=== PATIENT | female | born 1985 | race Caucasian/White ===

== ENCOUNTER 2017-05-03 10:32 | Outpatient (CLI) | payer OTHER ==
[2017-05-03] MEDS ORDERED: Iopamidol 370 76% 100 ML VIAL ONE (12:32)
== END 2017-05-03 10:33 | disposition home or self-care (01) ==
LOC: BICCT 10:32
PROVIDERS: ATTEND Family Medicine
DX: R51 Headache (principal)
CPT/HCPCS: 70470

== ENCOUNTER 2018-05-15 09:16 | Inpatient (IN) | payer BC ==
[2018-05-18] MEDS ORDERED: Ondansetron PF 4 MG/2 ML Vial IVP PRN ×2 (01:54→11:14)
[2018-05-18] MEDS ORDERED: NS w/ Oxytocin 10 units 500 ML IV SCH ×2 (01:54)
[2018-05-18] MEDS ORDERED: Promethazine HCl 25 MG/ML VIAL IM PRN (01:54)
[2018-05-18] MEDS ORDERED: Acetaminophen/Codeine 30-300mg Tablet PO PRN (01:54)
[2018-05-18] MEDS ORDERED: HYDROcodone/Acetaminophen 5/325 mg Tablet PO PRN ×2 (01:54→11:14)
[2018-05-18] MEDS ORDERED: Ibuprofen 800 MG TAB PO PRN (01:54)
[2018-05-18] MEDS ORDERED: Lidocaine 1% (PF) 30 ML VIAL SC PRN (01:54)
[2018-05-18] MEDS ORDERED: Butorphanol Tartrate 1 MG/ML VIAL SLOW IVP PRN (01:54)
[2018-05-18] MEDS ORDERED: NS / Oxytocin 40 units/1000ml 1,000 ML IV PRN (01:54)
[2018-05-18] MEDS ORDERED: Misoprostol 200 MCG TAB PR PRN (01:54)
[2018-05-18] MEDS ORDERED: Acetaminophen 500 MG TAB PO PRN (01:54)
[2018-05-18 02:15] LABS: Hemoglobin 11.3 g/dL (12.0-16.0); Mean Corpuscular HGB CONC 33.8 g/dL (32.0-36.0); Mean Corpuscular Hemoglobin 31.5 pg (27.0-31.0); Mean Corpuscular Volume 93.1 fL (78.0-98.0); Mean Platelet Volume 8.2 fL (7.4-10.4); Platelet Count 175 thou/uL (130-400); Red Blood Cell (RBC) Count 3.59 mill/uL (4.20-5.40); White Blood Cell (WBC) Count 9.1 thou/uL (4.8-10.8)
[2018-05-18 02:18] VITALS: BMI 28.8
[2018-05-18 02:50] LABS: HBSAg Index 0.21 S/CO (0-0.99); Hep B Surf Ag Non-Reactive S/CO (NonReactive)
[2018-05-18 03:52] LABS: Syphilis Antibody Nonreactive (Nonreactive); Syphilis Antibody Index 0.05 S/CO (<1.00 Non-Reactive)
[2018-05-18] MEDS: Lactated Ringer's 1,000 ML IV SCH ×2 (07:03→13:55)
[2018-05-18] MEDS ORDERED: Lidocaine 1% (PF) 30 ML VIAL ONE (09:52)
[2018-05-18] MEDS ORDERED: NS / Oxytocin 40 units/1000ml 1,000 ML ONE (09:52)
[2018-05-18] MEDS ORDERED: Misoprostol 200 MCG TAB ONE (10:14)
[2018-05-18] MEDS ORDERED: Milk Of Magnesia 30 ML UDCUP PO PRN (11:14)
[2018-05-18] MEDS ORDERED: diphenhydrAMINE 25 MG CAP PO PRN (11:14)
[2018-05-18] MEDS ORDERED: NS / Oxytocin 40 units/1000ml 1,000 ML IV SCH (11:14)
[2018-05-18] MEDS ORDERED: Benzocaine/Menthol 20-0.5% 60 ML CAN TOP PRN (11:14)
[2018-05-18] MEDS ORDERED: Bisacodyl 10 MG SUPP PR PRN (11:14)
[2018-05-18] MEDS ORDERED: Lanolin Ointment 7 GM TUBE TOP PRN (11:14)
[2018-05-18] MEDS ORDERED: Ferrous Sulfate 325 MG TAB PO SCH (12:00)
[2018-05-18] MEDS ORDERED: Docusate Calcium (SURFAK) 240 MG CAP PO SCH (12:00)
[2018-05-18] MEDS ORDERED: Prenatal Vitamin 1 TAB PO SCH (12:00)
[2018-05-18] MEDS: Ibuprofen 800 MG TAB PO SCH ×2 (14:17→21:43)
[2018-05-18] MEDS: Ferrous Sulfate 325 MG TAB PO SCH (17:03)
[2018-05-18] MEDS: Acetaminophen/Codeine 30-300mg Tablet PO PRN (18:03)
[2018-05-18] MEDS: Docusate Calcium (SURFAK) 240 MG CAP PO SCH (21:42)
[2018-05-19] MEDS: Ibuprofen 800 MG TAB PO SCH ×2 (05:27→13:52)
[2018-05-19] MEDS: Acetaminophen/Codeine 30-300mg Tablet PO PRN (05:27)
[2018-05-19] MEDS: Ferrous Sulfate 325 MG TAB PO SCH (07:47)
[2018-05-19 08:06] LABS: Hemoglobin 10.5 g/dL (12.0-16.0); Mean Corpuscular HGB CONC 34.3 g/dL (32.0-36.0); Mean Corpuscular Hemoglobin 32.4 pg (27.0-31.0); Mean Corpuscular Volume 94.3 fL (78.0-98.0); Mean Platelet Volume 8.4 fL (7.4-10.4); Platelet Count 164 thou/uL (130-400); RBC Distribution Width 12.1 % (11.5-14.5); Red Blood Cell (RBC) Count 3.26 mill/uL (4.20-5.40); White Blood Cell (WBC) Count 7.9 thou/uL (4.8-10.8)
[2018-05-19] MEDS ORDERED: Prenatal Vitamin 1 TAB PO SCH (09:00)
[2018-05-19] MEDS: Docusate Calcium (SURFAK) 240 MG CAP PO SCH (09:07)
[2018-05-19 11:42] VITALS: BP 104/66; TEMP 98.3
== END 2018-05-19 15:05 | disposition home or self-care (01) | DRG 807 ==
LOC: EDSTATUS 14:03 → L&D 05-17 22:59 → 3SW 05-18 13:52
PROVIDERS: ADMIT Family Medicine; ATTEND Family Medicine
PROC: 10E0XZZ Delivery of Products of Conception, External Approach (ICD-10-PCS; principal; 2018-05-18)
PROC: 10907ZC Drainage of Amniotic Fluid, Therapeutic from Products of Conception, Via Natural or Artificial Opening (ICD-10-PCS; 2018-05-18)
DX: O48.0 Post-term pregnancy (principal); Z37.0 Single live birth; Z3A.40 40 weeks gestation of pregnancy; Z88.8 Allergy status to other drugs, medicaments and biological substances; O69.81X0 Labor and delivery complicated by cord around neck, without compression, not applicable or unspecified
CPT/HCPCS: 36415; 85027; 86780; 86850; 86900; 86901; 87340; 99285; J2001

== ENCOUNTER 2019-04-18 11:07 | Outpatient (CLI) | payer BC ==
--- NOTE | 2019-04-18 11:30 | RAD ---
XR Chest Pa Lat STANDARD HISTORY: Chest pain, dyspnea COMPARISON: None FINDINGS: The heart size is normal. The lungs are well expanded without focal areas of consolidation, pneumothorax or pleural effusions. IMPRESSION: No radiographic evidence of acute cardiopulmonary process.
== END 2019-04-18 11:08 | disposition home or self-care (01) ==
LOC: BICRAD 11:07
PROVIDERS: ATTEND Family Medicine
DX: R07.89 Other chest pain (principal)
CPT/HCPCS: 71046

== ENCOUNTER 2019-04-19 19:35 | Emergency (ER) | payer BC ==
[2019-04-19 19:58] LABS: #Basophils 0.1 thou/uL (0.0-0.2); #Eosinphils 0.1 thou/uL (0.0-0.7); #Lymphocytes 2.9 thou/uL (1.20-3.40); #Monocytes 0.4 thou/uL (0.11-0.59); #Neutrophils 3.9 thou/uL (1.40-6.50); %Basophils 1.5 % (0.0-1.0); %Eosinophils 1.7 % (0.0-10.0); %Lymphocytes 39.2 % (21.0-51.0); %Monocytes 4.8 % (0.0-10.0); %Neutrophils 52.9 % (42.0-75.0); Hemoglobin 12.3 g/dL (12.0-16.0); Mean Corpuscular Hemoglobin 31.2 pg (27.0-31.0); Mean Corpuscular Volume 91.9 fL (78.0-98.0); Mean Platelet Volume 8.2 fL (7.4-10.4); Platelet Count 201 thou/uL (130-400); RBC Distribution Width 10.7 % (11.5-14.5); Red Blood Cell (RBC) Count 3.93 mill/uL (4.20-5.40); White Blood Cell (WBC) Count 7.4 thou/uL (4.8-10.8)
[2019-04-19 20:21] LABS: ALT (SGPT) 11 U/L (8-55); AST (SGOT) 14 U/L (5-34); Albumin 4.3 g/dL (3.5-5.0); Alkaline Phosphatase 53 U/L (40-110); Anion Gap 10 mmol/L (10-20); BUN (Urea Nitrogen) 14 mg/dL (7.0-18.7); Bilirubin, Total 0.4 mg/dL (0.2-1.2); CK (CPK) 53 U/L (29-168); Calc. Creatinine Clearance 0 mL/min (70-130); Calcium 9.4 mg/dL (7.8-10.44); Carbon Dioxide 25 mmol/L (22-29); Chloride 106 mmol/L (98-107); Estimated GFR-MDRD 85; Globulin 3.3 g/dL (2.4-3.5); Glucose 102 mg/dL (70-105); Potassium 3.3 mmol/L (3.5-5.1); Protein, Total 7.6 g/dL (6.0-8.3); Sodium 138 mmol/L (136-145)
== END 2019-04-19 21:08 | disposition home or self-care (01) ==
LOC: ERS 19:35
DX: R07.89 Other chest pain (principal)
CPT/HCPCS: 36415; 80053; 82550; 84484; 85025; 93005

== ENCOUNTER 2019-12-18 11:01 | Outpatient (CLI) | payer BC, OTHER ==
[2019-12-19 12:35] LABS: SARS-CoV-2 MS2 Positive; SARS-CoV-2 N Gene Negative; SARS-CoV-2 S Gene Negative; SARS-CoV-2 by NAA Not Detected (NotDetected); SARS-CoV-2 orf1ab Negative
== END 2019-12-18 11:02 | disposition home or self-care (01) ==
LOC: LABSCS 11:01
PROVIDERS: ATTEND Student in an Organized Health Care Education/Training Program
DX: Z20.828 Contact with and (suspected) exposure to other viral communicable diseases (principal)
CPT/HCPCS: 87635; U0003

== ENCOUNTER → 2019-12-21 13:30 | Inpatient (IN) | payer BC, OTHER ==
[2019-12-19 11:02] LABS: Hemoglobin 11.6 g/dL (12.0-16.0); Mean Corpuscular HGB CONC 34.1 g/dL (32.0-36.0); Mean Corpuscular Hemoglobin 32.1 pg (27.0-31.0); Mean Corpuscular Volume 94.1 fL (78.0-98.0); Mean Platelet Volume 8.9 fL (7.4-10.4); Platelet Count 189 thou/uL (130-400); RBC Distribution Width 12.3 % (11.5-14.5); Red Blood Cell (RBC) Count 3.63 mill/uL (4.20-5.40); White Blood Cell (WBC) Count 7.7 thou/uL (4.8-10.8)
[2019-12-19 11:30] VITALS: BMI 29.0
[2019-12-19 11:52] LABS: Syphilis Antibody Nonreactive (Nonreactive); Syphilis Antibody Index 0.04 S/CO (<1.00 Non-Reactive)
[2019-12-19 11:53] LABS: HBSAg Index 0.16 S/CO (0-0.99); Hep B Surf Ag Non-Reactive S/CO (NonReactive)
--- NOTE | 2019-12-19 15:43 | PDOC.LDHP ---
Labor and Delivery H&P Chief complaint: other (vag bleeding) HPI: 34yo at 39w here with c/o vaginal bleeding, had large clot this morning, no continued bleeding now, filled a few panty liners, denies ctx or LOF. Hx low lying placenta. IOL sched for today, elective Current gestational age (weeks): 39 Due date: 12/26/19 Dating criteria: last menstrual period Grav: 4 Para: 3 Current complications: none Abnormal US findings: Yes (low lying placenta, resolved) Past Medical History: denies Current medications: pre- vitamins Previous surgical history: none Allergies/Adverse Reactions: Allergies Allergy/AdvReac Type Severity Reaction Status Date / Time chlorhexidine Allergy Verified 05/18/18 02:20 peanut Allergy Verified 05/18/18 02:20 Social history: none - Physical Exam Vital signs reviewed and normal: yes General: NAD Heart: RRR Lungs: CTAB Abdomen: gravid Extremeties: no edema FHT: category 1 [place] contractions every: 8min - Vaginal Exam cm dilated: 6 Effacement: 75% Station: -2 (arom clear) - OB Labs Blood type: O RH: positive Antibody Screen: negative HIV: negative RPR: negative HEPSAg: negative 1 hour GCT: negative GBS: negative Urine drug screen: negative Rubella: immune - Assessment L&D Assessment: term patient in labor - Plan Plan: admit to L&D, labor augmentation if indicated, informed consent obtained, anesthesia consult for pain management
--- NOTE | 2019-12-19 15:45 | PDOC.OPDEL ---
OB Operative/Delivery Note Delivery Dr/Surgeon: Jaxson Assist: n/a Pre-Delivery Diagnosis: active labor Procedure/Post Delivery Dx: spontaneous vaginal delivery Weeks gestation: 39 Anesthesia: none - Findings A Sex: male - 1 min: 8 - 5 min: 9 - Additional Findings/Plan Placenta delivered: spontaneous Repaired Obstetrical Laceration: none Estimated blood loss: 350cc Post delivery plan: routine recovery
[2019-12-19] MEDS: HYDROcodone/Acetaminophen 5/325 mg Tablet PO PRN (20:14)
[2019-12-19] MEDS: Ibuprofen 800 MG TAB PO SCH (22:23)
[2019-12-19] MEDS: Docusate Calcium (SURFAK) 240 MG CAP PO SCH (22:24)
[2019-12-20] MEDS: Ibuprofen 800 MG TAB PO SCH ×3 (06:01→21:37)
[2019-12-20] MEDS: HYDROcodone/Acetaminophen 5/325 mg Tablet PO PRN ×2 (06:05→15:09)
--- NOTE | 2019-12-20 08:09 | PDOC.PP ---
Post Progress Note Post Day #: 1 PO intake tolerated: yes Flatus: yes Ambulation: yes Vital Signs (12 hours) Temp Pulse Resp BP Pulse Ox 12/20/19 07:37 98.3 F 71 20 110/66 99 12/20/19 05:58 98.4 F 68 16 108/58 L 12/20/19 00:30 98.4 F 62 16 105/55 L 12/19/19 22:20 98.1 F Weight Weight 191 lb - Physical Examination General: NAD Respiratory: non-labored breathing Abdominal: appropriately TTP Fundus firm & at: umb Neurological: no gross focal deficits Psychiatric: normal affect Result Diagrams: 12/19/19 10:49 Additional Labs: Post Labs Hep Bs Antigen Non-Reactive S/CO (NonReactive) 12/19/19 10:49 Blood Type O POSITIVE 12/19/19 10:49 - Assessment/Plan PPD1 s/p TSVD VSSAF No issues, bleeding appropriate, mild PPH s/p cytotec, FF Rh pos RImm DC home FU 6w
[2019-12-20] MEDS: Ferrous Sulfate 325 MG TAB PO SCH ×2 (08:43→15:08)
[2019-12-20] MEDS: Prenatal Vitamin 1 TAB PO SCH (09:19)
[2019-12-20] MEDS: Docusate Calcium (SURFAK) 240 MG CAP PO SCH ×2 (09:19→21:37)
[2019-12-20 20:30] VITALS: TEMP 98.2
[2019-12-21] MEDS: Ibuprofen 800 MG TAB PO SCH (07:23)
[2019-12-21 07:43] VITALS: BP 108/64
--- NOTE | 2019-12-21 08:03 | PDOC.PP ---
Post Progress Note Post Day #: 2 Subjective: doing well, ready for DC home PO intake tolerated: yes Flatus: yes Ambulation: yes Vital Signs (12 hours) Temp Pulse Resp BP Pulse Ox 12/21/19 07:42 98.2 F 65 20 108/64 98 Weight Weight 191 lb - Physical Examination General: NAD Respiratory: non-labored breathing Psychiatric: A&Ox3, normal affect Result Diagrams: 12/19/19 10:49 Additional Labs: Post Labs Hep Bs Antigen Non-Reactive S/CO (NonReactive) 12/19/19 10:49 Blood Type O POSITIVE 12/19/19 10:49 - Assessment/Plan PPD 2 doing well, home today.
[2019-12-21] MEDS: Ferrous Sulfate 325 MG TAB PO SCH (09:03)
[2019-12-21] MEDS: Docusate Calcium (SURFAK) 240 MG CAP PO SCH (09:03)
[2019-12-21] MEDS: Prenatal Vitamin 1 TAB PO SCH (09:03)
[~2019-12-21 13:30] MED LIST: Acetaminophen 500 MG TAB PO PRN; Adacel (T-DAP) 0.5 ML SYRINGE IM ONE; Benzocaine-Menthol 82.5 ML CAN TOP PRN; Bisacodyl 10 MG SUPP PR PRN; Butorphanol Tartrate 1 MG/ML VIAL SLOW IVP PRN; Carboprost 250 MCG/ML AMP IM PRN; Diphenoxylate HCl/Atropine Tablet PO PRN; Fentanyl 4 mcg/Bup 0.1% Cadd 0 ML ONE; Ferrous Sulfate 325 MG TAB PO SCH; HYDROcodone/Acetaminophen 5/325 mg Tablet PO PRN; Ibuprofen 800 MG TAB PO PRN; Lactated Ringer's 1,000 ML IV SCH; Lanolin Ointment 7 GM TUBE TOP PRN; Lidocaine 1% (PF) 30 ML VIAL SC PRN; Methylergonovine 0.2 MG/ML VIAL IM PRN; Milk Of Magnesia 30 ML UDCUP PO PRN; Misoprostol 200 MCG TAB PR PRN; NS / Oxytocin 40 units/1000ml 1,000 ML IV PRN; NS / Oxytocin 40 units/1000ml 1,000 ML IV SCH; Ondansetron PF 4 MG/2 ML Vial IVP PRN; Preparation H Ointment 28 GM TUBE PR PRN; Promethazine HCl 25 MG/ML VIAL IM PRN; diphenhydrAMINE 25 MG CAP PO PRN; hydrALAZINE 20 MG/ML VIAL SLOW IVP PRN
== END | disposition home or self-care (01) | DRG 807 ==
LOC: L&D/OP 05-17 22:58 → L&D 12-19 08:15 → 3SE 12-19 18:41 → EDSTATUS 01-02 14:47
PROVIDERS: ADMIT Student in an Organized Health Care Education/Training Program; ATTEND Student in an Organized Health Care Education/Training Program
PROC: 10E0XZZ Delivery of Products of Conception, External Approach (ICD-10-PCS; principal; 2019-12-19)
PROC: 10907ZC Drainage of Amniotic Fluid, Therapeutic from Products of Conception, Via Natural or Artificial Opening (ICD-10-PCS; 2019-12-19)
DX: O72.1 Other immediate postpartum hemorrhage (principal); Z37.0 Single live birth; Z3A.39 39 weeks gestation of pregnancy
CPT/HCPCS: 36415; 85027; 86780; 86850; 86900; 86901; 87340; 87635; 99285; U0003

== ENCOUNTER 2020-02-06 06:26 | Emergency (ER) | payer BC ==
[2020-02-06 07:14] LABS: Bilirubin Negative (Negative); Blood, Urine Large (Negative); Glucose, Urine (Dipstick) Negative (Negative); Ketone, Urine Trace mg/dL (Negative); Leukocyte Negative (Negative); Nitrite Negative (Negative); Protein, Urine (Dipstick) 100 mg/dL (Neg-Trace); Urobilinogen 0.2 mg/dL (Less than 2); pH, Urine 5.5 (5.0-9.0)
[2020-02-06] MEDS ORDERED: Ibuprofen 800 MG TAB ONE (07:21)
[2020-02-06] MEDS ORDERED: Ondansetron ODT 8 MG TAB ONE (07:21)
[2020-02-06 07:31] LABS: Clarity Cloudy (Clear); Specific Gravity, Urine 1.033 (1.002-1.036)
[2020-02-06 07:33] LABS: RBC/HPF Greater than 50 HPF (0-3)
[2020-02-06 07:34] LABS: Bacteria/HPF 2+ HPF (None Seen); Squamous Epithelial 0-3 HPF (0-3)
--- NOTE | 2020-02-06 07:37 | CT ---
Abdomen and pelvic CT scan without IV contrast: HISTORY: Right-sided flank pain FINDINGS: The lung bases are clear. The liver, gallbladder, pancreas, spleen, adrenal glands are unremarkable. Bilateral nonobstructing renal calculi. Moderate hydronephrosis of the right ureter with dilatation of the right upper collecting system and right ureter seen down into the level of the pelvis where th ere is an approximately 0.5 cm diameter calculus probably representing an obstructing distal right ureteral calculus. Normal-appearing appendix. No evidence for large or small bowel obstruction. No ab scess or abnormal fluid collection within the abdomen or pelvis. IMPRESSION: Evidence for a distal right ureteral obstructing calculus with moderate hydroureteronephrosis. Bilateral nonobstructing renal calculi. No evidence for acute appendicitis.
[2020-02-06] MEDS ORDERED: Ketorolac Tromethamine 30 MG/ML VIAL ONE (08:24)
== END 2020-02-06 09:45 | disposition home or self-care (01) ==
LOC: ERS 06:26
DX: N13.2 Hydronephrosis with renal and ureteral calculous obstruction (principal)
CPT/HCPCS: 74176; 81003; 81015; 96374; J1885; Q0162

== ENCOUNTER 2025-03-25 18:38 | Emergency (ER) | payer BC ==
[~2025-03-25 18:38] MED LIST changes: -Acetaminophen 500 MG TAB PO PRN; -Adacel (T-DAP) 0.5 ML SYRINGE IM ONE; -Benzocaine-Menthol 82.5 ML CAN TOP PRN; -Bisacodyl 10 MG SUPP PR PRN; -Butorphanol Tartrate 1 MG/ML VIAL SLOW IVP PRN; -Carboprost 250 MCG/ML AMP IM PRN; -Diphenoxylate HCl/Atropine Tablet PO PRN; -Fentanyl 4 mcg/Bup 0.1% Cadd 0 ML ONE; -Ferrous Sulfate 325 MG TAB PO SCH; -HYDROcodone/Acetaminophen 5/325 mg Tablet PO PRN; -Ibuprofen 800 MG TAB PO PRN; +Iopamidol-370 76% 500 ML MDV (1 ML CHARGE) ONE; -Lactated Ringer's 1,000 ML IV SCH; -Lanolin Ointment 7 GM TUBE TOP PRN; -Lidocaine 1% (PF) 30 ML VIAL SC PRN; -Methylergonovine 0.2 MG/ML VIAL IM PRN; -Milk Of Magnesia 30 ML UDCUP PO PRN; -Misoprostol 200 MCG TAB PR PRN; -NS / Oxytocin 40 units/1000ml 1,000 ML IV PRN; -NS / Oxytocin 40 units/1000ml 1,000 ML IV SCH; -Ondansetron PF 4 MG/2 ML Vial IVP PRN; -Preparation H Ointment 28 GM TUBE PR PRN; -Promethazine HCl 25 MG/ML VIAL IM PRN; -diphenhydrAMINE 25 MG CAP PO PRN; -hydrALAZINE 20 MG/ML VIAL SLOW IVP PRN
[2025-03-25 19:15] LABS: #Basophils 0.03 10x3/uL (0.0-0.2); #Eosinophils 0.05 10x3/uL (0.0-0.7); #Monocytes 0.38 10x3/uL (0.11-0.59); #Neutrophils 4.33 10x3/uL (1.40-6.50); %Basophils 0.5 % (0.0-1.0); %Eosinophils 0.8 % (0.0-10.0); %Lymphocytes 25.8 % (21.0-51.0); %Monocytes 5.9 % (0.0-10.0); %Neutrophils 66.7 % (42.0-75.0); Hematocrit 36.7 % (36.0-47.0); Hemoglobin 12.6 g/dL (12.0-16.0); Mean Corpuscular Hemoglobin 31.3 pg (27.0-31.0); Mean Corpuscular Volume 91.3 fL (78.0-98.0); Platelet Count 207 10x3/uL (130-400); Red Blood Cell (RBC) Count 4.02 mill/uL (4.20-5.40); White Blood Cell (WBC) Count 6.48 10x3/uL (4.8-10.8)
[2025-03-25 19:30] LABS: ALT (SGPT) 16 U/L (Less than 34); AST (SGOT) 18 U/L (11-34); Albumin 4.3 g/dL (3.1-4.5); Alkaline Phosphatase 46 U/L (40-110); Anion Gap 12 mmol/L (10-20); BUN (Urea Nitrogen) 15 mg/dL (7.0-18.7); Bilirubin, Total 0.2 mg/dL (0.3-1.2); Calc. Creatinine Clearance 0 mL/min (70-130); Calcium 9.4 mg/dL (7.8-10.44); Carbon Dioxide 24 mmol/L (22-29); Chloride 106 mmol/L (98-107); Globulin 3.4 g/dL (2.4-3.5); Glucose 106 mg/dL (70-105); Potassium 3.8 mmol/L (3.5-5.1); Sodium 138 mmol/L (136-145)
[2025-03-25 21:19] LABS: BHCG - Serum Negative (NEGATIVE); Pregs Control Background? CLEAR/WHITE (CLR/WHITE); Pregs Control Bar Appear? YES (CONTROL BAR)
== END 2025-03-25 23:33 | disposition home or self-care (01) ==
LOC: ERS 18:38
DX: R07.89 Other chest pain (principal)
CPT/HCPCS: 36415; 71275; 80053; 84484; 84703; 85025; 93005; Q9967